=== PATIENT | female | born 1985 | race Caucasian/White ===

== ENCOUNTER 2016-08-08 16:19 | Emergency (ER) | payer OTHER ==
[2016-08-08 16:24] VITALS: BP 127/61; PULSE 87; RESP 16; TEMP 99.2; O2SAT 100
--- NOTE | 2016-08-08 16:43 | ED PDOC ---
HPI: Skin/Bite Injury Time Seen by Provider: 08/08/16 16:39 Chief Complaint (Nursing): Abnormal Skin Integrity Chief Complaint (Provider): skin lesion History Per: Patient History/Exam Limitations: no limitations Additional Complaint(s): 30yo M in ED for eval of lesion noted to left forearm x 2days with increasing swelling, redness and pain. no fever chills nausea or vomiting. states over the weekend she was outdoors and may have sustained a bite . pt is 15 weeks Past Medical History Reviewed: Historical Data, Nursing Documentation, Vital Signs Vital Signs: Last Vital Signs Temp 99.2 F 08/08/16 16:22 Pulse 87 08/08/16 16:22 Resp 16 08/08/16 16:22 BP 127/61 08/08/16 16:22 Pulse Ox 100 08/08/16 16:22 - Medical History PMH: No Chronic Diseases - Family History Family History: States: No Known Family Hx - Home Medications Home Medications: Ambulatory Orders Medication Instructions Recorded Cephalexin [cephalexin] 500 mg PO BID #20 cap 08/08/16 - Allergies Allergies/Adverse Reactions: Allergies Allergy/AdvReac Type Severity Reaction Status Date / Time shellfish derived Allergy RASH Verified 08/08/16 16:22 Review of Systems ROS Statement: Except As Marked, All Systems Reviewed And Found Negative Constitutional: Negative for: Fever, Chills Skin: Positive for: Rash Physical Exam - Reviewed Nursing Documentation Reviewed: Yes Vital Signs Reviewed: Yes - Physical Exam Appears: Positive for: Well, Non-toxic, No Acute Distress Skin: Positive for: Normal Color, Warm, Rash (left forearm dorsal aspect-3x3 cm ertyehma with streaking and tenderness no drainage. ) Cardiovascular/Chest: Positive for: Regular Rate, Rhythm Respiratory: Positive for: CNT, Normal Breath Sounds Neurologic/Psych: Positive for: Alert, Oriented - ECG O2 Sat by Pulse Oximetry: 100 Medical Decision Making Medical Decision Making: dx: cellulites tx: keflex and are marked advised if increased in size to return to ED or f/u with pmd Disposition - Clinical Impression Clinical Impression: Cellulitis - Patient ED Disposition Is Patient to be Admitted: No Counseled Patient/Family Regarding: Studies Performed, Diagnosis, Need For Followup, Rx Given - Disposition Disposition: Routine/Home Disposition Time: 16:56 Condition: STABLE Prescriptions: Cephalexin [cephalexin] 500 mg PO BID #20 cap Instructions: Cellulitis (ED) Forms: Air Visits Discharge ([place])
== END 2016-08-08 17:00 | disposition home or self-care (01) ==
LOC: H.ER 16:19
DX: L03.90 Cellulitis, unspecified (principal); Z33.1 Pregnant state, incidental

== ENCOUNTER 2017-01-21 21:40 | Emergency (ER) | payer OTHER ==
--- NOTE | 2017-01-21 23:11 | OBHP ---
Datetime: 01/21/2017 23:06 IP Adm Impression: Term, intrauterine ; No Active Labor; Intact Membranes IP Admit Plan: Observation/Evaluation; Discharge home Admit Comment, IP Provider: 31-year-old 002 at 38 weeks gestational age complains of contracti ons. Patient denies any vaginal bleeding or leakage of fluids. Patient reports good movement. P renatal records were reviewed. Otherwise, patient without complaints Past medical history none Past surgical history none Medications vitamins No known drug allergies Obstetrical history full-term normal spontaneous vaginal delivery 2 Social history no tobacco, no drugs, no alcohol Physical exam: Physical exam findings Assessment: 31-year-old at 38 weeks gestational age. No evidence of labor at this time. Maternal well-being and well-being reassuring at this time. Plan: Discharge home with labor precautions. Patient has follow-up scheduled this week and primary physi jimmy's office. Pelvic Type - PN: Adequate Extremities - PN: Normal Abdomen - PN: Normal Back - PN: Normal Breast - PN: Normal Lungs - PN: Normal Heart - PN: Normal Thyroid - PN: Normal Neurologic - PN: Normal HEENT - PN: Normal General - PN: Normal FHR - Baseline A Provider: 120s Membranes, Provider: Intact Contraction Comments Provider: none Pool Provider: Negative IP Hx Assessment: The History has been Reviewed and is Current Vital Signs Provider: Reviewed; Within Normal Limits IP Chief Complaint: Uterine contractions NICHD Variability Prov Fetus A: Moderate 6-25bpm NICHD Accel Fetus A IP Provider: 15X15 FHR Category Provider Fetus A: Category I NICHD Decel Fetus A IP Provider: None Dilatation, Provider: 1 Effacement, Provider: long Station, Provider: high Genitourinary Exam: Normal DTRs - PN: Normal
[2017-01-22 03:22] VITALS: BP 112/57; PULSE 72; RESP 18; TEMP 97.6
== END 2017-01-21 23:10 | disposition home or self-care (01) ==
LOC: H.EROB2 21:40
DX: O47.1 False labor at or after 37 completed weeks of gestation (principal); Z3A.38 38 weeks gestation of pregnancy

== ENCOUNTER 2017-01-24 17:09 | Inpatient (IN) | payer OTHER ==
[2017-01-24 17:44] VITALS: BMI 34.7
[2017-01-24] MEDS ORDERED: Lactated Ringer's 1,000 ML IV SCH ×2 (18:00→23:00)
--- NOTE | 2017-01-24 18:31 | OBADHP ---
Datetime: 01/24/2017 15:45 Admit Comment, IP Provider: 31yo IUP at 39w c/o lots of fluid coming from vagina. No CTX; no VB +FM PNC: Dr Noble chart rev'd GBS NEG PMH:asthma PSH: denies Allergies [place] POBH x 2 PGYNH: Chl+ PSoH: no smoking ETHOH drugs A; IUP at 39w SROM PLAN: admit to L_D discussed with Dr Noble and agreed admit;labs and observe progress Pelvic Type - PN: Adequate Extremities - PN: Normal Abdomen - PN: Normal Back - PN: Normal Breast - PN: Not Done Lungs - PN: Normal Heart - PN: Normal Thyroid - PN: Normal Neurologic - PN: Normal HEENT - PN: Normal General - PN: Normal Presentation-Admit: Vertex FHR - Baseline A Provider: 140 Amniotic Fluid Color, Provider: Clear Membranes, Provider: Ruptured Contraction Comments Provider: + Comments, ACOG Physical Exam: ROS: General: no weakness; no fatigue HEENT: no CAPONE; no visual dist CV: no palpitations; no no CP GI: no N/V no diarhea : no F/U/D MS: No joint pain Pool Provider: Positive IP Hx Assessment: The History has been Reviewed and is Current IP Chief Complaint: Suspected ruptured membranes NICHD Variability Prov Fetus A: Moderate 6-25bpm NICHD Accel Fetus A IP Provider: 15X15 FHR Category Provider Fetus A: Category I Dilatation, Provider: 1 Effacement, Provider: long Station, Provider: high Genitourinary Exam: Normal DTRs - PN: Normal EGA AdmitDate IP: 39.1 IP Adm Impression: Term, intrauterine ; No Active Labor; Ruptured Membranes IP Admit Plan: Admit to unit; Initiate labor protocol Datetime: 01/21/2017 23:06 Vital Signs Provider: Reviewed; Within Normal Limits NICHD Decel Fetus A IP Provider: None
[2017-01-24 18:48] LABS: HEMATOCRIT 38.6 % (34.0-47.0); MEAN CORPUSCULAR HEMOGLOBIN 23.5 pg (27.0-31.0); MEAN CORPUSCULAR HGB CONC 31.7 g/dL (33.0-37.0); RED CELL DISTRIBUTION WIDTH 14.1 % (11.5-14.5); WHITE BLOOD COUNT 15.4 K/uL (4.8-10.8)
[2017-01-24 20:02] VITALS: PULSE 81; O2SAT 99
[2017-01-24] MEDS ORDERED: Nalbuphine 20 mg/ml Inj (1 ml) IVP PRN (23:02)
[2017-01-24] MEDS ORDERED: Fentanyl/Bupivacaine HCl 250 ML EPI ONE (23:45)
[2017-01-25] MEDS ORDERED: Oxytocin 30 units/LR 500ML 30 U/500 ML BAG IV ONE (00:30)
[2017-01-25] MEDS ORDERED: Lidocaine 2% Inj (20ml) ONE (00:32)
--- NOTE | 2017-01-25 02:00 | OBDS ---
DELIVERY PERSONNEL Delivery Doctor: Jaxon Noble MD Chromium Plater: Reba RN/ Francisco J CABA Anesthesiologist: Jesus Rainey MD MATERNAL INFORMATION Delivery Anesthesia: Epidural Medications in Delivery: Pitocin Estimated Blood Loss (ml): 250 Placenta Cultured: No Maternal Complications: None Provider Comments: delivery of live baby girl 9/9 2 nuchal cord clear fluidcord with 3 vessel s placenta intact LABOR SUMMARY EDC: 01/30/2017 00:00 No. Babies in Womb: 1 Attempted: No Labor Anesthesia: Epidural LABOR INFORMATION Reason for Induction: Not Applicable Onset of Labor: 01/24/2017 23:00 Complete Dilatation: 01/25/2017 00:20 Oxytocin: N/A Group B Beta Strep: Negative Antibiotics # of Doses: N/A Antibiotics Time of Last Dose: N/A Steroids Given: None Reason Steroids Not Administered: Not Applicable MEMBRANES Membranes Rupture Method: Spontaneous Rupture of Membranes: 01/24/2017 15:00 Length of Rupture (hrs): 9.63 Amniotic Fluid Color: Clear Amniotic Fluid Amount: Small Amniotic Fluid Odor: Normal STAGES OF LABOR Stage 1 hrs: 1 Stage 1 min: 20 Stage 2 hrs: 0 Stage 2 min: 18 Stage 3 hrs: 0 Stage 3 min: 0 Total Time in Labor hrs: 1 Total Time in Labor min: 38 VAGINAL DELIVERY Initial Vag Sponge Count: 5 Final Vag Sponge Count: 5 Initial Vag Sharps Count: 1 Final Vag Sharps Count: 1 Sponge Count Correct: Yes Sharps Count Correct: Yes Count Comment: Laps 5 Instruments 15 Sharps 1 BABY A INFORMATION Infant Delivery Date/Time: 01/25/2017 00:38 Method of Delivery: Vaginal Born in Route : No : N/A Forceps: N/A Vacuum Extraction: N/A Shoulder Dystocia : No SHOULDER DYSTOCIA BABY A Delivery Date/Time: 01/25/2017 00:38 PRESENTATION/POSITION BABY A Presentation: Cephalic Cephalic Presentation: Vertex Breech Presentation: N/A PLACENTA INFORMATION BABY A Placenta Delivery Time : 01/25/2017 00:38 Placenta Method of Delivery: Spontaneous Placenta Status: Delivered SCORES BABY A Heart Rate 1 min: >100 bpm Resp Effort 1 min: Good Cry Reflex Irritability 1 min: Cough or Sneeze or Pulls Away Muscle Tone 1 min: Active Motion Color 1 min: Body [place], Extremities Blue Resuscitation Effort 1 min: Tactile Stimulation SCORE 1 MIN: 9 Heart Rate 5 min: >100 bpm Resp Effort 5 min: Good Cry Reflex Irritability 5 min: Cough or Sneeze or Pulls Away Muscle Tone 5 min: Active Motion Color 5 min: Body [place], Extremities Blue Resuscitation Effort 5 min: N/A SCORE 5 MIN: 9 INFORMATION BABY A Gestational Age at Delivery: 39.2 Gestational Status: Term Infant Outcome : Liveborn Condition : Stable Sex: Female IDENTIFICATION/MEDS BABY A ID Band Number: [id number] ID Band Location: Left Leg; Left Arm WEIGHT/LENGTH BABY A Birthweight (gms): 2955 Infant Weight (lb): 6 Infant Weight (oz): 8 CORD INFORMATION BABY A No. Cord Vessels: 3 Nuchal Cord : Around Neck x2, Loose Cord Blood Taken: Yes Suction: Mouth; Nose ASSESSMENT BABY A Infant Complications: None Physical Findings at Delivery: Within Normal Limits Respirations: Appears Normal Top Closer/ALS Called : No Infant Care By: Francisco J CABA Transferred To: Remains with Mother
[2017-01-25] MEDS ORDERED: Oxycodone/Acetaminophen 5/325 mg Tab PO PRN ×3 (02:09→03:00)
[2017-01-25 06:11] LABS: HEMATOCRIT 38.3 % (34.0-47.0); MEAN CELL VOLUME 74.1 fl (81.0-99.0); MEAN CORPUSCULAR HEMOGLOBIN 23.6 pg (27.0-31.0); MEAN CORPUSCULAR HGB CONC 31.9 g/dL (33.0-37.0); RED CELL DISTRIBUTION WIDTH 14.3 % (11.5-14.5)
[2017-01-25] MEDS ORDERED: Hydrocortisone-Pramoxine 1%-1% Foam(10 gm) TOP PRN (09:22)
[2017-01-25] MEDS: Oxycodone/Acetaminophen 5/325 mg Tab PO PRN (20:15)
[2017-01-25] MEDS ORDERED: Lactated Ringer's 1,000 ML IV SCH (23:00)
[2017-01-26] MEDS: Oxycodone/Acetaminophen 5/325 mg Tab PO PRN (06:37)
--- NOTE | 2017-01-26 09:04 | OBPPN ---
Datetime: 01/26/2017 09:00 PP Pain Prov: Within normal limits PP Nausea Prov: Denies PP Flatus Prov: Yes PP BM Prov: No PP Breasts Prov: Normal PP Heart Prov: Normal PP Lungs Prov: Normal PP Abdomen/Uterus Prov: Normal PP Lochia Prov: Normal PP Vulva/Perineum Prov: Normal PP CVA Tenderness Prov: Normal PP Extremities Prov: Normal PP Progress Prov: Normal PP Impression Prov: Normal progression PP Plan Prov: Continue present management PP Progress Note Prov: staBLE PPD1 CONTINUE PRESENT CARE IP PP Procedures: None Vital Signs Provider PP: Reviewed; Within Normal Limits
--- NOTE | 2017-01-26 09:06 | OBDCSUM ---
Datetime: 01/26/2017 09:02 Discharged to, Provider: Home Follow up at, Provider: Disch Instr Activity: Bedrest; May be up to bathroom; May be up for meals; May Shower Disch Instr Diet: Regular Discharge Instructions, Provider: Routine instructions given Discharge Diagnosis, Provider: Term Delivered Follow up in weeks, Provider: 5-6 WEEKS Disch Referrals: None Disch Activity Restrictions: No exercising; No lifting; No driving; Minimize walking; Minimize stair -climbing; No sexual activity; Nothing in vagina - [place], tampons, douche Discharge Comment, Provider: DC HOME TODAY ,RTO 5-6 WEEKS, CALL OFFICE IF ANY PROBLEMS Contraception after Delivery: Undecided
[2017-01-26 18:57] VITALS: BP 139/83; RESP 20; TEMP 98.7
== END 2017-01-26 14:40 | disposition home or self-care (01) | DRG 775 ==
LOC: H.EROB2 17:09 → H.L&D 17:46 → H.OB/GYN 01-25 02:35
PROVIDERS: ADMIT Specialist; ATTEND Specialist
PROC: 10E0XZZ Delivery of Products of Conception, External Approach (ICD-10-PCS; principal; 2017-01-24)
PROC: 4A1HXCZ Monitoring of Products of Conception, Cardiac Rate, External Approach (ICD-10-PCS; 2017-01-24)
DX: O69.81X0 Labor and delivery complicated by cord around neck, without compression, not applicable or unspecified (principal); J45.909 Unspecified asthma, uncomplicated; Z37.0 Single live birth; O99.52 Diseases of the respiratory system complicating childbirth; Z3A.39 39 weeks gestation of pregnancy